=== PATIENT | female | born 1955 | race Caucasian/White ===

== ENCOUNTER 2020-10-23 16:40 | Emergency (ER) | payer MEDICARE ==
[2020-10-23 16:59] VITALS: TEMP 98
--- NOTE | 2020-10-23 17:26 | ED ---
General Adult HPI - General Chief complaint: Wound/Laceration Stated complaint: MRI Time Seen by Provider: 10/23/20 16:52 Source: patient Mode of arrival: ambulatory Limitations: no limitations - History of Present Illness Initial comments: Dictation was produced using [employer] dictation software. please excuse any grammatical, word or spelling errors. Chief Complaint: 65-year-old male presents with concerns ferocity minus of the right foot History of Present Illness: Patient 65-year-old female she was sent here from [facility]. She was evaluated and found to have a diabetic foot ulcer to the bottom of the right foot. The wound was probed all the way to what was described as a bone. She was sent here for concerns of osteomyelitis. Patient states that that was a chronic wound. She denies any constitutional symptoms. 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 She does not feel any pain there. Patient has had multiple amputations to the right foot in the past. The ROS documented in this emergency department record has been reviewed and confirmed by me. Those systems with pertinent positive or negative responses have been documented in the HPI. All other systems are other negative and/or noncontributory. PHYSICAL EXAM: General Impression: Alert and oriented x3, not in acute distress HEENT: Normocephalic atraumatic, extra-ocular movements intact, pupils equal and reactive to light bilaterally, mucous membranes moist. Cardiovascular: Heart regular rate and rhythm Chest: Able to complete full sentences, no retractions, no tachypnea Abdomen: abdomen soft, non-tender, non-distended, no organomegaly Musculoskeletal: Pulses present and equal in all extremities, no peripheral edema Right foot: There is a ulcer to the plantar surface of the right foot, gets probed with palpation of the bone with Q-tip, surrounding skin does not appear to be erythematous Motor: no focal deficits noted Neurological: CN II-XII grossly intact, no focal motor or sensory deficits noted Skin: Intact with no visualized rashes Psych: Normal affect and mood ED course: 65-year-old female presents to the emergency department for concerns of possible osteomyelitis. Vital Signs upon arrival are within acceptable limits. 3 evaluation obtained. No leukocytosis. Metabolic panel is within acceptable limits. CRP is 2.3 she is slightly elevated. X-ray does not show definitive evidence of osteomyelitis. Patient's well-appearing without any constitutional symptoms. She has no fevers. Patient really wants to be discharged. She is stable and well-appearing. She has a good social situation. Case is discussed with infectious disease doctor who recommends starting patient on Augmentin and to follow-up in his office for further care. Patient is agreeable to plan. Return precautions discussed. - Related Data Home Medications Medication Instructions Recorded Confirmed Cephalexin [Keflex] 500 mg PO QID 10/23/20 10/23/20 Cinnamon 2,000 1 tab PO DAILY 10/23/20 10/23/20 Cranberry 4200mg 4,200 mg PO DAILY 10/23/20 10/23/20 Cyclobenzaprine [Flexeril] 10 mg PO BID PRN 10/23/20 10/23/20 DULoxetine HCL [Cymbalta] 60 mg PO BID 10/23/20 10/23/20 Gabapentin [Neurontin] 800 mg PO TID 10/23/20 10/23/20 L.acidoph,Paracasei, B.lactis 1 cap PO DAILY 10/23/20 10/23/20 [Probiotic] Levothyroxine Sodium [Synthroid] 50 mcg PO DAILY 10/23/20 10/23/20 Magnesium Oxide 400 mg PO DAILY 10/23/20 10/23/20 Primidone [Mysoline] 50 mg PO BID 10/23/20 10/23/20 Vitamin C/Biotin [Hair, Skin and 1 tab PO DAILY 10/23/20 10/23/20 Nails Chew] buPROPion HCL [Wellbutrin XL] 300 mg PO DAILY 10/23/20 10/23/20 busPIRone HCL [Buspar] 30 mg PO BID 10/23/20 10/23/20 hydrOXYzine pamoate [Vistaril] 100 mg PO TID 10/23/20 10/23/20 metFORMIN HCL 500 mg PO HS 10/23/20 10/23/20 rOPINIRole HCL [Requip] 1 mg PO BID 10/23/20 10/23/20 traMADol HCL [Ultram] 100 mg PO TID PRN 10/23/20 10/23/20 traZODone HCL [Desyrel] 50 - 100 mg PO HS PRN 10/23/20 10/23/20 Previous Rx's Medication Instructions Recorded Amoxic-Pot Clav 875-125Mg 1 tab PO BID 10 Days #20 tab 10/23/20 [Augmentin 875-125] Allergies Allergy/AdvReac Type Severity Reaction Status Date / Time amoxicillin Allergy Unknown Verified 10/23/20 18:53 Review of Systems ROS Statement: Those systems with pertinent positive or pertinent negative responses have been documented in the HPI. ROS Other: All systems not noted in ROS Statement are negative. Past Medical History Past Medical History: Diabetes Mellitus, Hypertension, Thyroid Disorder Additional Past Medical History / Comment(s): RLS, charcots joint of right foot, palpitations, insomina, osteoporosis, lower back pain, balance disorder, essential tremor, low blood preussure, chronic fatigue, memory loss, History of Any Multi-Drug Resistant Organisms: None Reported Past Surgical History: Appendectomy, Orthopedic Surgery, Tonsillectomy Additional Past Surgical History / Comment(s): amputation of right great toe Past Psychological History: Anxiety, Depression Smoking Status: Never smoker Past Alcohol Use History: None Reported Past Drug Use History: None Reported General Exam Limitations: no limitations Course Vital Signs 10/23/20 10/23/20 16:51 18:56 Temperature 98.0 F Pulse Rate 85 81 Respiratory 20 18 Rate Blood Pressure 106/56 102/65 O2 Sat by Pulse 95 97 Oximetry Medical Decision Making - Lab Data Result diagrams: 10/23/20 18:13 10/23/20 18:13 Lab Results 10/23/20 10/23/20 Range/Units 18:13 18:13 WBC 6.4 (3.8-10.6) k/uL RBC 4.20 (3.80-5.40) m/uL Hgb 12.3 (11.4-16.0) gm/dL Hct 36.6 (34.0-46.0) % MCV 87.2 (80.0-100.0) fL MCH 29.3 (25.0-35.0) pg MCHC 33.6 (31.0-37.0) g/dL RDW 13.6 (11.5-15.5) % Plt Count 276 (150-450) k/uL MPV 6.6 Neutrophils % 58 % Lymphocytes % 30 % Monocytes % 5 % Eosinophils % 4 % Basophils % 1 % Neutrophils # 3.7 (1.3-7.7) k/uL Lymphocytes # 1.9 (1.0-4.8) k/uL Monocytes # 0.3 (0-1.0) k/uL Eosinophils # 0.3 (0-0.7) k/uL Basophils # 0.0 (0-0.2) k/uL Sodium 137 (137-145) mmol/L Potassium 4.2 (3.5-5.1) mmol/L Chloride 102 (98-107) mmol/L Carbon Dioxide 28 (22-30) mmol/L Anion Gap 7 mmol/L BUN 16 (7-17) mg/dL Creatinine 0.93 (0.52-1.04) mg/dL Est GFR (CKD-EPI)AfAm 76 (>60 ml/min/1.73 sqM) Est GFR (CKD-EPI)NonAf 66 (>60 ml/min/1.73 sqM) Glucose 101 H (74-99) mg/dL Calcium 8.9 (8.4-10.2) mg/dL Total Bilirubin 0.2 (0.2-1.3) mg/dL AST 21 (14-36) U/L ALT 20 (4-34) U/L Alkaline Phosphatase 93 (38-126) U/L C-Reactive Protein 2.3 H (<1.0) mg/dL Total Protein 6.2 L (6.3-8.2) g/dL Albumin 3.8 (3.5-5.0) g/dL Disposition Clinical Impression: Foot ulcer Disposition: HOME SELF-CARE Condition: Fair Instructions (If sedation given, give patient instructions): Diabetic Foot Ulcers (ED) Additional Instructions: Follow-up with infectious disease doctor. Please seek immediate medical attention if you have any worsening symptoms especially with fevers, worsening pain or redness to the foot. Prescriptions: Amoxic-Pot Clav 875-125Mg [Augmentin 875-125] 1 tab PO BID 10 Days #20 tab Is patient prescribed a controlled substance at d/c from ED?: No Referrals: Concha Barnett MD [STAFF PHYSICIAN] - 1-2 days
--- NOTE | 2020-10-23 18:01 | XR ---
EXAMINATION TYPE: XR foot complete RT DATE OF EXAM: 10/23/2020 COMPARISON: NONE HISTORY: Pain TECHNIQUE: 3 view FINDINGS: There is amputation deformity of the big toe at the level of the mid shaft of the first met atarsal. There is some deformity of the phalanges of the little toe. I see no focal bone destruction. There is a staple fixing the navicular and first cuneiform bone. There is fusion of the midfoot with a large scrotal in the calcaneus. There is absence of the cuboidal bone. There is significant shorte live of the midfoot. There is pes planus deformity. There is large plantar calcaneal spur. IMPRESSION: Previous surgery. Fusion deformity of the midfoot with bone loss. I do not see definite s ign of osteomyelitis. Comparison with another exam would be helpful.
[2020-10-23 18:25] LABS: Basophils % (A) 1 %; Eosinophils # (A) 0.3 k/uL (0-0.7); Eosinophils % (A) 4 %; HCT 36.6 % (34.0-46.0); HGB 12.3 gm/dL (11.4-16.0); Lymphocytes # (A) 1.9 k/uL (1.0-4.8); Lymphocytes % (A) 30 %; MCH 29.3 pg (25.0-35.0); MCHC 33.6 g/dL (31.0-37.0); MCV 87.2 fL (80.0-100.0); Mean Platelet Volume 6.6; Monocytes # (A) 0.3 k/uL (0-1.0); Monocytes % (A) 5 %; Neutrophils # (A) 3.7 k/uL (1.3-7.7); Neutrophils % (A) 58 %; Platelet Count 276 k/uL (150-450); RDW 13.6 % (11.5-15.5); WBC 6.4 k/uL (3.8-10.6)
[2020-10-23 18:40] LABS: Albumin 3.8 g/dL (3.5-5.0); C Reactive Protein 2.3 mg/dL (<1.0); Calcium 8.9 mg/dL (8.4-10.2); Potassium 4.2 mmol/L (3.5-5.1); Total Bilirubin 0.2 mg/dL (0.2-1.3); Total Protein 6.2 g/dL (6.3-8.2)
[2020-10-23 18:58] VITALS: BP 102/65; PULSE 81; RESP 18
== END 2020-10-23 20:03 | disposition home or self-care (01) ==
LOC: EC 16:40
DX: E11.621 Type 2 diabetes mellitus with foot ulcer (principal); L97.519 Non-pressure chronic ulcer of other part of right foot with unspecified severity; E11.40 Type 2 diabetes mellitus with diabetic neuropathy, unspecified; I10 Essential (primary) hypertension; F32.9 Major depressive disorder, single episode, unspecified; F41.9 Anxiety disorder, unspecified; M81.0 Age-related osteoporosis without current pathological fracture; Z79.84 Long term (current) use of oral hypoglycemic drugs; Z79.899 Other long term (current) drug therapy; Z79.890 Hormone replacement therapy; Z88.0 Allergy status to penicillin
CPT/HCPCS: 36415; 80053; 85025; 86140; 99283